=== PATIENT | male | born 1960 | race Caucasian/White ===

== ENCOUNTER 2021-11-24 09:53 | Inpatient (IN) | payer BC ==
[2021-11-24] MEDS ORDERED: ACETAMINOPHEN 500 MG TAB ONE (10:11)
[2021-11-24 10:23] LABS: Hematocrit 42.1 % (39.6-49.0); Lymphocytes % 22.1 % (15.3-44.8); MPV 7.4 fL (7.6-11.3); RBC Red Blood Cell Count 4.96 M/uL (4.33-5.43)
[2021-11-24] MEDS ORDERED: NA CHLORIDE 0.9% 1,000 ML ONE ×3 (10:23→23:00)
[2021-11-24] MEDS ORDERED: CEFTRIAXONE 1000 MG/VIAL ONE (10:23)
[2021-11-24] MEDS ORDERED: NA CHLORIDE 0.9% 100 ML IV ONE (10:23)
--- NOTE | 2021-11-24 10:28 | RAD REPORT ---
EXAM DESCRIPTION: CT - Head Brain Wo Cont - 11/24/2021 10:15 am CLINICAL HISTORY: Head injury status post fall COMPARISON: None. TECHNIQUE: Computed axial tomography of the head was obtained. IV contrast was not requested. All CT scans are performed using dose optimization technique as appropriate and may include automated exposure control or mA/KV adjustment according to patient size. FINDINGS: An intracranial bleed is not seen . The ventricles are normal in caliber. No significant hypodense areas within the brain No extra-axial fluid collection is noted. Small left frontal bone osteoma Fluid within the sinuses/ mastoids is not seen. IMPRESSION: No acute intracranial abnormality is seen. If patient's symptoms persist MRI of the bra in would be recommended.
--- NOTE | 2021-11-24 10:43 | RAD REPORT ---
EXAM DESCRIPTION: Richelle Single View11/24/2021 10:26 am CLINICAL HISTORY: Shortness of breath COMPARISON: none FINDINGS: The lungs appear clear of acute infiltrate. The heart is normal size IMPRESSION: No acute abnormalities displayed
[2021-11-24 10:44] LABS: Albumin 3.4 g/dL (3.4-5.0); Bilirubin Total 1.7 mg/dL (0.2-1.0); Potassium 3.9 mmol/L (3.5-5.1); Protein, Total 6.9 g/dL (6.4-8.2)
[2021-11-24 10:51] LABS: Troponin High Sensitivity 63.4 pg/mL (<58.9)
[2021-11-24 10:52] LABS: Protime INR 0.95
[2021-11-24 10:58] LABS: Urine Bacteria 20-50 /HPF (NONE SEEN); Urine Mucus 1+ /HPF (NONE SEEN); Urine RBC <5 /HPF (NONE SEEN)
[2021-11-24 11:11] LABS: SARS-COV-2 RT PCR NEGATIVE (NEGATIVE)
--- NOTE | 2021-11-24 12:32 | RAD REPORT ---
EXAM DESCRIPTION: CT - Abdomen Pelvis W Contrast - 11/24/2021 12:06 pm CLINICAL HISTORY: Abdominal pain COMPARISON: none. TECHNIQUE: Computed axial tomography of the abdomen pelvis was obtained. 100 cc Isovue-300 was admin istered intravenously. Oral contrast was not requested which limits evaluation of bowel and appendix. All CT scans are performed using dose optimization technique as appropriate and may include automated exposure control or mA/KV adjustment according to patient size. FINDINGS: The liver contains several sub centimeter low-density lesions. Mild splenomegaly The pancreas, adrenals and kidneys unremarkable There is no evidence of diverticulitis. Small umbilical hernia small inguinal hernias contain fat IMPRESSION: Mild splenomegaly Several subcentimeter hepatic lesions are too small to characterize by CT criteria. It is recommended that the patient have a follow up ultrasound 3 months for re-evaluation
--- NOTE | 2021-11-24 13:24 | ER ---
Nurse's Notes [facility] Name: Sathya Soria Age: 61 yrs Sex: Male : 1960 Arrival Date: 11/24/2021 Time: 09:55 Bed 4 Private MD: Diagnosis: Severe sepsis without septic shock Presentation: 11/24 10:05 Chief complaint: Patient states: Fever, GARCIA, chills, not feeling well since this ll1 morning. Tripped on his way in to ED and fell back and hit head. Denies LOC. Pale, diaphoretic, and hot now. Coronavirus screen: Vaccine status: Patient reports being unvaccinated. Client denies travel out of the [place] in the last 14 days. difficulty breathing, fatigue, fever, headache, shortness of breath, Client presents with at least one sign or symptom that may indicate coronavirus-19. Standard/surgical mask placed on the client. Ebola Screen: Patient denies travel to an Ebola-affected area in the 21 days before illness onset. Initial Sepsis Screen: Does the patient meet any 2 criteria? RR > 20 per min. Temp <36.0*C (96.8*F)) or > 38.3*C (100.9*F). HR > 90 bpm. Yes Does the patient have a suspected source of infection? Yes: Productive cough/pneumonia. Risk Assessment: Do you want to hurt yourself or someone else? Patient reports no desire to harm self or others. Onset of symptoms was November 24, 2021. 10:05 Method Of Arrival: Wheelchair ll1 10:05 Acuity: MAXX 2 ll1 Triage Assessment: 10:08 General: Appears uncomfortable, ill, Behavior is cooperative, appropriate for age. ll1 Pain: Complains of pain in head Pain currently is 7 out of 10 on a pain scale. Pain began suddenly. Neuro: Reports headache hit back of head on the way in. Respiratory: Reports shortness of breath. Derm: Skin is diaphoretic, Reports. 11:39 Headache History: Denies prior headaches. tw2 Historical: - Allergies: 10:03 No Known Allergies; ll1 - PMHx: 10:03 None; ll1 - PSHx: 10:03 Appendectomy; ll1 - Immunization history:: Client reports having NOT received the Covid vaccine. - Social history:: Smoking status: Patient denies any tobacco usage or history of. Screenin:59 Abuse screen: Denies threats or abuse. Nutritional screening: No deficits noted. tw2 Tuberculosis screening: No symptoms or risk factors identified. Fall Risk None identified. Assessment: 09:58 Reassessment: provider at bedside at this time. tw2 10:30 General: Appears well developed, Behavior is calm, cooperative. Pain: Complains of pain ww in back. Neuro: Level of Consciousness is awake, alert, obeys commands, Oriented to person, place, time, situation, Moves all extremities. Speech is normal. Cardiovascular: Rhythm is regular Chest pain is denied. Respiratory: Airway is patent Respiratory effort is even, unlabored, Respiratory pattern is regular, symmetrical. GI: No signs and/or symptoms were reported involving the gastrointestinal system. Abdomen is round. : Urine is orange clear. Derm: Skin is intact, Skin is clammy, diaphoretic, Skin temperature is cool. 11:15 Reassessment: Patient appears in no apparent distress at this time. Patient and/or ww family updated on plan of care and expected duration. Pain level reassessed. Patient is alert, oriented x 3, equal unlabored respirations, skin warm/dry/pink. Derm: Skin is intact, Skin is dry, Skin temperature is warm. 12:59 Reassessment: Patient appears in no apparent distress at this time. No changes from ww previously documented assessment. Patient and/or family updated on plan of care and expected duration. Pain level reassessed. Patient is alert, oriented x 3, equal unlabored respirations, skin warm/dry/pink. Patient states feeling better. 13:25 Reassessment: Patient appears in no apparent distress at this time. No changes from ww previously documented assessment. Patient and/or family updated on plan of care and expected duration. Pain level reassessed. Patient is alert, oriented x 3, equal unlabored respirations, skin warm/dry/pink. Patient states feeling better. 14:35 Reassessment: Patient appears in no apparent distress at this time. No changes from ww previously documented assessment. Patient and/or family updated on plan of care and expected duration. Pain level reassessed. Patient is alert, oriented x 3, equal unlabored respirations, skin warm/dry/pink. 15:30 Reassessment: Patient appears in no apparent distress at this time. No changes from ww previously documented assessment. Patient and/or family updated on plan of care and expected duration. Pain level reassessed. Patient is alert, oriented x 3, equal unlabored respirations, skin warm/dry/pink. 17:35 Reassessment: Patient appears in no apparent distress at this time. No changes from ww previously documented assessment. Patient and/or family updated on plan of care and expected duration. Pain level reassessed. Patient is alert, oriented x 3, equal unlabored respirations, skin warm/dry/pink. assisted to restroom Patient states feeling better. 18:46 Reassessment: Patient appears in no apparent distress at this time. No changes from ww previously documented assessment. Patient and/or family updated on plan of care and expected duration. Pain level reassessed. Patient is alert, oriented x 3, equal unlabored respirations, skin warm/dry/pink. Patient states feeling better. Vital Signs: 10:00 BP 98 / 56; Pulse 118; Resp 22; Pulse Ox 98% on R/A; tw2 10:05 BP 124 / 57; Pulse 146; Resp 22; Temp 103.1; Pulse Ox 95% on R/A; Weight 144.24 kg; ll1 Height 5 ft. 11 in. (180.34 cm); Pain 7/10; 11:00 BP 94 / 62; Pulse 118; Resp 21; Pulse Ox 98% on R/A; tw2 11:37 BP 99 / 57; Pulse 98; Resp 19; Pulse Ox 98% on R/A; tw2 11:38 Temp 99.8(O); tw2 13:25 BP 106 / 72; Pulse 86; Resp 16; Pulse Ox 98% on R/A; ww 16:00 BP 94 / 60; Pulse 92; Resp 17; Pulse Ox 99% on R/A; tw2 17:00 BP 105 / 63; Pulse 86; Resp 19; Pulse Ox 100% on R/A; tw2 18:07 BP 77 / 28; Pulse 88; Resp 19; Pulse Ox 99% on R/A; tw2 10:05 Body Mass Index 44.35 (144.24 kg, 180.34 cm) 1 ED Course: 09:55 Patient arrived in ED. rg4 09:55 Placed in gown. Bed in low position. Side rails up X2. Adult w/ patient. Cardiac tw2 monitor on. Pulse ox on. NIBP on. 09:56 Devin Castañeda PA is PHCP. jr8 09:56 Miles Fernández DO is Attending Physician. jr8 09:58 Sherie Garibay, ALEX is Primary Nurse. tw2 10:00 EKG done. Inserted saline lock: 20 gauge in right antecubital area, using aseptic ww technique. Blood collected. 10:03 Arm band placed on Patient placed in an exam room, on a stretcher. ll1 10:08 Triage completed. ll1 10:16 CT Head Brain wo Cont In Process Unspecified. EDMS 10:28 Chest Single View XRAY In Process Unspecified. EDMS 10:52 Inserted saline lock: 20 gauge in left antecubital area, using aseptic technique. Blood ww collected. 12:08 CT Abd/Pelvis - IV Contrast Only In Process Unspecified. EDMS 13:23 Malcom Velez MD is Hospitalizing Provider. jr8 13:26 Hospitalizing Provider role handed off by Malcom Velez MD jr8 13:26 Rylan Low MD is Hospitalizing Provider. jr8 19:10 Primary Nurse role handed off by Sherie Garibay RN tw5 19:10 Nirmala Keene is Primary Nurse. tw5 Administered Medications: 10:10 Drug: Acetaminophen 1000 mg Route: PO; ap3 11:41 Follow up: Response: No adverse reaction; Temperature is decreased tw2 10:52 Drug: NS 0.9% 1000 ml Route: IV; Rate: 1000 ml; Site: right antecubital; ww 10:52 Drug: Rocephin (cefTRIAXone) 1 grams Route: IV; Rate: calculated rate; Site: right ww antecubital; 11:44 Drug: NS 0.9% 1000 ml Route: IV; Rate: 1000 ml; Site: left antecubital; ww 13:39 Drug: fentaNYL (PF) 50 mcg Route: IVP; Site: right antecubital; ww Outcome: 13:24 Decision to Hospitalize by Provider. jr8 11/25 14:59 Patient left the ED. jd3 Signatures: Dispatcher [employer] EDMS Devin Castañeda PA PA jr8 Sherie Garibay, RN RN tw2 Allison Villegas 4 Milan Enriquez RN RN jd3 Komal Hartmann, RN RN ap3 Merari Vega, RN RN ll1 Nirmala Keene tw5 Jud Keene, RN RN ww
--- NOTE | 2021-11-24 13:24 | EDPHYS ---
Physician Documentation [facility] Name: Sathya Soria Age: 61 yrs Sex: Male : 1960 Arrival Date: 11/24/2021 Time: 09:55 Bed 4 Private MD: ED Physician Miles Fernández HPI: 11/24 11:25 This 61 yrs old Male presents to ER via Wheelchair with complaints of Fever, Headache, jr8 Weakness, Fall Injury. 11:25 The patient reports fever, with an emergency department temperature of 103.1 degrees jr8 Fahrenheit. Onset: The symptoms/episode began/occurred acutely, today. Modifying factors: there are no obvious modifying factors. Associated signs and symptoms: Pertinent positives: chills, headache, nausea. Severity of symptoms: At their worst the symptoms were moderate in the emergency department the symptoms are unchanged. The patient has not experienced similar symptoms in the past. The patient has not recently seen a physician. Upon arrival to ED fell and hit back of head as well. Denies LOC. Historical: - Allergies: 10:03 No Known Allergies; ll1 - PMHx: 10:03 None; ll1 - PSHx: 10:03 Appendectomy; ll1 - Immunization history:: Client reports having NOT received the Covid vaccine. - Social history:: Smoking status: Patient denies any tobacco usage or history of. ROS: 11:25 Eyes: Negative for injury, pain, redness, and discharge, ENT: Negative for injury, jr8 pain, and discharge, Neck: Negative for injury, pain, and swelling, Cardiovascular: Negative for chest pain, palpitations, and edema, Respiratory: Negative for shortness of breath, cough, wheezing, and pleuritic chest pain, Back: Negative for injury and pain, MS/Extremity: Negative for injury and deformity, Skin: Negative for injury, rash, and discoloration. 11:25 Constitutional: Positive for chills, fever. 11:25 Abdomen/GI: Positive for nausea, Negative for abdominal pain, vomiting, diarrhea. 11:25 Neuro: Positive for dizziness, headache. Exam: 11:25 Eyes: Pupils equal round and reactive to light, extra-ocular motions intact. Lids and jr8 lashes normal. Conjunctiva and sclera are non-icteric and not injected. Cornea within normal limits. Periorbital areas with no swelling, redness, or edema. ENT: Nares patent. No nasal discharge, no septal abnormalities noted. Tympanic membranes are normal and external auditory canals are clear. Oropharynx with no redness, swelling, or masses, exudates, or evidence of obstruction, uvula midline. Mucous membranes moist. Neck: Trachea midline, no thyromegaly or masses palpated, and no cervical lymphadenopathy. Supple, full range of motion without nuchal rigidity, or vertebral point tenderness. No Meningismus. 11:25 Respiratory: Lungs have equal breath sounds bilaterally, clear to auscultation and percussion. No rales, rhonchi or wheezes noted. No increased work of breathing, no retractions or nasal flaring. Abdomen/GI: Soft, non-tender, with normal bowel sounds. No distension or tympany. No guarding or rebound. No evidence of tenderness throughout. Back: No spinal tenderness. No costovertebral tenderness. Full range of motion. Skin: Warm, moist with normal turgor. Normal color with no rashes, no lesions, and no evidence of cellulitis. MS/ Extremity: Pulses equal, no cyanosis. Neurovascular intact. Full, normal range of motion. Neuro: Awake and alert, GCS 15, oriented to person, place, time, and situation. Cranial nerves II-XII grossly intact. Motor strength 5/5 in all extremities. Sensory grossly intact. 11:25 Constitutional: The patient appears alert, awake, diaphoretic, obviously ill. 11:25 Cardiovascular: Rate: tachycardic, Rhythm: regular, Pulses: Pulses are 2+ in right radial artery and left radial artery. Heart sounds: normal, normal S1and S2, no S3 or S4, no murmur, no rub, no gallop, Edema: is not appreciated, JVD: is not appreciated. Vital Signs: 10:00 BP 98 / 56; Pulse 118; Resp 22; Pulse Ox 98% on R/A; tw2 10:05 BP 124 / 57; Pulse 146; Resp 22; Temp 103.1; Pulse Ox 95% on R/A; Weight 144.24 kg; ll1 Height 5 ft. 11 in. (180.34 cm); Pain 7/10; 11:00 BP 94 / 62; Pulse 118; Resp 21; Pulse Ox 98% on R/A; tw2 11:37 BP 99 / 57; Pulse 98; Resp 19; Pulse Ox 98% on R/A; tw2 11:38 Temp 99.8(O); tw2 13:25 BP 106 / 72; Pulse 86; Resp 16; Pulse Ox 98% on R/A; ww 16:00 BP 94 / 60; Pulse 92; Resp 17; Pulse Ox 99% on R/A; tw2 17:00 BP 105 / 63; Pulse 86; Resp 19; Pulse Ox 100% on R/A; tw2 18:07 BP 77 / 28; Pulse 88; Resp 19; Pulse Ox 99% on R/A; tw2 10:05 Body Mass Index 44.35 (144.24 kg, 180.34 cm) ll1 MDM: 09:56 [facility] medically [facility]. [facility] 13:23 Data reviewed: vital signs, nurses notes, lab test result(s), EKG, radiologic studies, [facility] scan, plain films. Data interpreted: Pulse oximetry: on room air is 98 %. Interpretation: normal. Counseling: I had a detailed discussion with the patient and/or guardian regarding: the historical points, exam findings, and any diagnostic results supporting the discharge/admit diagnosis, lab results, radiology results, the need for further work-up and treatment in the hospital. 11/24 10:03 Order name: Blood Culture Adult (2) [facility] 11/24 10:03 Order name: CBC with Diff; Complete Time: 10:26 [facility] 11/24 10:03 Order name: CMP; Complete Time: 11: [facility] 11/24 10:03 Order name: Lactate; Complete Time: 11: [facility] 11/24 10:03 Order name: Protime (+inr); Complete Time: 11: [facility] 11/24 10:03 Order name: Ptt, Activated; Complete Time: 11:00 [facility] 11/24 10:03 Order name: Urine Microscopic Only; Complete Time: 11: [facility] 11/24 10:04 Order name: COVID-19/FLU A+B (Document "Date of Onset" if Symptomatic); Complete Time: [facility] 11:11/24 10:04 Order name: Troponin HS; Complete Time: 11:00 [facility] 11/24 10:20 Order name: Glucose, Ancillary Testing; Complete Time: 10:24 [facility]DC 11/24 11:02 Order name: Urine Culture [facility]DC 11/24 14:01 Order name: Lactate Sepsis 2 HR Follow-up; Complete Time: 14:02 [facility] 11/24 15:59 Order name: Urinalysis EDDC 11/24 15:59 Order name: Basic Metabolic Panel [facility]DC 11/24 10:03 Order name: Chest Single View XRAY; Complete Time: 11:00 [facility] 11/24 10:03 Order name: Accucheck; Complete Time: 10:16 [facility] 11/24 10:03 Order name: CT Head Brain wo Cont; Complete Time: 10:39 [facility] 11/24 11:24 Order name: CT Abd/Pelvis - IV Contrast Only; Complete Time: 12:36 [facility] 11/24 13:42 Order name: Diet Heart Healthy; Complete Time: 13:42 11/24 15:59 Order name: Basic Metabolic Panel; Complete Time: 08:40 [facility] 11/24 15:59 Order name: CBC with Automated Diff [facility]DC 11/24 15:59 Order name: CBC with Automated Diff; Complete Time: 08:40 [facility]DC 11/24 15:59 Order name: Lipid Profile EDDC 11/24 15:59 Order name: Lipid Profile; Complete Time: 08:40 [facility]DC 11/25 08:02 Order name: US; Complete Time: 08:40 [facility] 11/24 10:03 Order name: Cardiac monitoring; Complete Time: 10:16 [facility] 11/24 10:03 Order name: EKG - Nurse/Tech; Complete Time: 10:04 [facility] 11/24 10:03 Order name: IV Saline Lock - Large Bore; Complete Time: 10:16 [facility] 11/24 10:03 Order name: Labs collected and sent; Complete Time: 10:16 [facility] 11/24 10:03 Order name: O2 Per Protocol; Complete Time: 10:04 [facility] 11/24 10:03 Order name: O2 Sat Monitoring; Complete Time: 10:04 [facility] 11/24 10:03 Order name: Urine Dipstick-Ancillary (obtain specimen); Complete Time: 10:52 jr Administered Medications: 10:10 Drug: Acetaminophen 1000 mg Route: PO; ap3 11:41 Follow up: Response: No adverse reaction; Temperature is decreased tw2 10:52 Drug: NS 0.9% 1000 ml Route: IV; Rate: 1000 ml; Site: right antecubital; ww 10:52 Drug: Rocephin (cefTRIAXone) 1 grams Route: IV; Rate: calculated rate; Site: right ww antecubital; 11:44 Drug: NS 0.9% 1000 ml Route: IV; Rate: 1000 ml; Site: left antecubital; ww 13:39 Drug: fentaNYL (PF) 50 mcg Route: IVP; Site: right antecubital; Disposition Summary: 11/24/21 13:24 Hospitalization Ordered Hospitalization Status: Inpatient Admission jr8 Condition: Stable jr8 Problem: new jr8 Symptoms: have improved jr8 Bed/Room Type: Standard jr8 Provider: Rylan Low(11/24/21 13:26) jr8 Location: Telemetry/MedSurg (Inpatient)(11/25/21 13:19) eb Room Assignment: [facility](11/25/21 13:19) eb Diagnosis - Severe sepsis without septic shock jr8 Forms: - Medication Reconciliation Form jr8 - SBAR form jr8 Addendum: 11/27/2021 15:41 Co-signature as Attending Physician, Miles Fernández DO I was immediately available on-site m s3 in the Emergency Department for consultation in the care of the patient.. Signatures: Dispatcher [employer] EDMS Devin Castañeda PA PA jr8 Landry Sharma RN RN [email or web address] Komal Hartmann RN RN ap3 Tangela Dumont Lynsay, RN RN 1 Miles Fernández DO DO ms3 Jud Keene RN RN ww Sherie Garibay RN tw2 Corrections: (The following items were deleted from the chart) 11/24 13:26 13:24 Malcom Velez jr8 jr8 21:10 13:24 Telemetry/MedSurg (Inpatient) jr8 ja1 21:10 13:24 jr8 ja1 11/25 13:19 11/24 21:10 [facility] ER HOLD ja1 eb 11/25 13:19 11/24 [facility] eb
[2021-11-24] MEDS ORDERED: FENTANYL CITR 100 MCG/2 ML ONE (13:41)
[2021-11-24] MEDS ORDERED: ONDANSETRON 4 MG/2 ML VIAL IV PRN (15:51)
[2021-11-24] MEDS: NA CHLORIDE 0.9% 1,000 ML IV SCH (16:00)
--- NOTE | 2021-11-24 16:02 | P.HP ---
Certification for Inpatient Patient admitted to: Observation With expected LOS: <2 Midnights Practitioner: I am a practitioner with admitting privileges, knowledge of patient current condition, hospital course, and medical plan of care. Services: Services provided to patient in accordance with Admission requirements found in Title 42 Section 412.3 of the Code of Federal Regulations Patient History Date of Service: 11/24/21 Reason for admission: Lethargy, Fever, Lactic acidosis. History of Present Illness: 61-year-old male patient who came to the emergency with complaint of lethargy and feeling of chills. He reported episode of chills that started suddenly while he was at work. He denied overt episode of diarrhea, nausea, vomiting but did have fever measured at 103. He denied cough or congestion. He had lab work done in the emergency room that revealed elevated lactic acid of 4.5 and with IV fluid is trended to 1. He also had elevated creatinine 1.36 prompting an acute kidney injury. There was concern for underlying septic condition as his urine analysis revealed possible UTI. He was admitted for observation for his possible sepsis work-up. Home medications list reviewed: No - Past Medical/Surgical History Has patient received pneumonia vaccine in the past: No Diabetic: No - Social History Smoking Status: Never smoker Alcohol use: No Review of Systems General: Chills, Weakness, Malaise Eyes: Unremarkable ENT: Unremarkable Respiratory: Unremarkable Physical Examination - Physical Exam General: Alert, Oriented x3 HEENT: Atraumatic, Normocephalic Neck: Supple Respiratory: Normal air movement Cardiovascular: Regular rate/rhythm, Normal S1 S2 Gastrointestinal: Soft and benign Neurological: Normal speech, Normal strength at 5/5 x4 extr, Cranial nerves 3-12 intact - Studies Laboratory Data (last 24 hrs) 11/24/21 10:08: PT 11.3, INR 0.95, APTT 26.4 11/24/21 10:08: Sodium 138, Potassium 3.9, BUN 16, Creatinine 1.36 H, Glucose 163 H, Total Bilirubin 1.7 H, AST 32, ALT 36, Alkaline Phosphatase 66 11/24/21 10:08: WBC 4.6, Hgb 15.0, Hct 42.1, Plt Count 148 L Assessment and Plan - Plan Suspected sepsis: Present on admission Elevated lactic acid noted but this is trended down with IV fluid. Source is suspected to be urinary tract infection. We will continue work-up and monitor. Urine culture obtained. Will follow closely. Acute kidney injury: Creatinine is elevated at 1.36. We will continue IV fluid for hydration purposes. We will ask nephrology input UTI: Significant UA for possible UTI. Empiric antibiotic therapy with Rocephin. We will monitor culture report for adjustment. Prophylaxis: Lovenox for DVT prophylaxis CODE STATUS: Full code Discharge Plan: Home Plan to discharge in: 24 Hours - Advance Directives Does patient have a Living Will: No Does patient have a Durable POA for Healthcare: No
[2021-11-24] MEDS: ENOXAPARIN 40 MG/0.4 ML SQ SCH (17:00)
[2021-11-24] MEDS ORDERED: ENOXAPARIN 40 MG/0.4 ML SQ ONE (23:01)
[2021-11-25] MEDS: ACETAMINOPHEN 325 MG TABLET PO PRN ×2 (02:54→08:37)
[2021-11-25] MEDS ORDERED: ACETAMINOPHEN 325 MG TABLET ONE ×2 (02:56→08:33)
[2021-11-25 03:09] LABS: Absolute Lymphocytes (CBC) 0.9 K/uL (0.7-4.9); Lymphocytes % 15.5 % (15.3-44.8); MPV 7.3 fL (7.6-11.3); RBC Red Blood Cell Count 3.99 M/uL (4.33-5.43)
[2021-11-25 03:11] VITALS: BMI 44.4
[2021-11-25 03:28] LABS: Potassium 3.8 mmol/L (3.5-5.1)
[2021-11-25] MEDS: NA CHLORIDE 0.9% 1,000 ML IV SCH ×2 (05:20→21:49)
--- NOTE | 2021-11-25 07:25 | P.CNS ---
Date of Consult: 11/24/21 Reason for Consult: elevated creatinine Chief Complaint: Lethargy, Fever, Lactic acidosis. History of Present Illness: 61-year-old male admitted with chills , noted with UTI and elevated creatinine to 1.36 - no prior hx of kidney problems - + urine frequency prior to acute symptoms - +recurrent anal fissures Allergies No Known Allergies Allergy (Unverified 11/24/21 22:05) - Past Medical/Surgical History Diabetic: No Past Medical History: Reviewed- Non-Contributory Past Surgical History: Reviewed- Non-Contributory - Social History Alcohol use: No CD- Drugs: No Caffeine use: Yes Review of Systems 10-point ROS is otherwise unremarkable Physical Examination Temp Pulse Resp BP Pulse Ox 98.2 F 75 16 103/52 L 100 11/25/21 00:00 11/25/21 04:00 11/25/21 04:00 11/25/21 04:00 11/25/21 04:00 General: Alert, In no apparent distress, Oriented x3 HEENT: Atraumatic, Normocephalic, PERRLA Neck: Supple, 2+ carotid pulse no bruit, JVD not distended Respiratory: Clear to auscultation bilaterally, Normal air movement Cardiovascular: No edema, Normal pulses, Regular rate/rhythm Gastrointestinal: Normal bowel sounds, Hypoactive Musculoskeletal: No clubbing, No swelling Integumentary: No rashes, No breakdown Laboratory Data (last 24 hrs) 11/24/21 10:08: PT 11.3, INR 0.95, APTT 26.4 11/24/21 10:08: Sodium 138, Potassium 3.9, BUN 16, Creatinine 1.36 H, Glucose 163 H, Total Bilirubin 1.7 H, AST 32, ALT 36, Alkaline Phosphatase 66 11/24/21 10:08: WBC 4.6, Hgb 15.0, Hct 42.1, Plt Count 148 L - Problems (1) UTI (urinary tract infection) Current Visit: Yes Status: Acute Qualifiers: Urinary tract infection type: acute cystitis Physician Review: Patient Assessed, Agree with Above Assessment and Plan Physician Review Additional Text: ARF - due to pre-renal UTI LUTS plan -continue gentle IVF and abx -RENALLY DOSE ALL MDS - FOLLOW CR TREND , EXPECTED TO IMPROVED IN AM - consider bladder US with prostate view s for BPH
--- NOTE | 2021-11-25 07:28 | P.PN ---
Subjective Date of Service: 11/25/21 Chief Complaint: Lethargy, Fever, Lactic acidosis. Subjective: No new changes, No C/O voiced Physical Examination - Vital Signs Temperature: 98.2 F Blood Pressure: 103/52 Pulse: 75 Respirations: 16 Pulse Ox (%): 100 - Physical Exam General: Alert, In no apparent distress, Oriented x3 HEENT: Atraumatic, Normocephalic Neck: Supple, 2+ carotid pulse no bruit Respiratory: Clear to auscultation bilaterally, Normal air movement Cardiovascular: No edema, Normal pulses, Regular rate/rhythm, Normal S1 S2 Gastrointestinal: Normal bowel sounds, Soft and benign - Studies Laboratory Data (last 24 hrs) 11/24/21 10:08: PT 11.3, INR 0.95, APTT 26.4 11/24/21 10:08: Sodium 138, Potassium 3.9, BUN 16, Creatinine 1.36 H, Glucose 163 H, Total Bilirubin 1.7 H, AST 32, ALT 36, Alkaline Phosphatase 66 11/24/21 10:08: WBC 4.6, Hgb 15.0, Hct 42.1, Plt Count 148 L Assessment And Plan - Current Problems (Diagnosis) (1) UTI (urinary tract infection) Current Visit: Yes Status: Acute Qualifiers: Urinary tract infection type: acute cystitis Physician Review: Patient Assessed, Agree with Above Assessment and Plan Physician Review Additional Text: 11/25/21 07:26 ARF UTI PLAN cr improving , continue to monitor follow sonogram
--- NOTE | 2021-11-25 08:02 | RAD REPORT ---
EXAM DESCRIPTION: US - Urinary Bladder - 11/25/2021 7:53 am CLINICAL HISTORY: UTI , r/o BPH COMPARISON: Abdomen Pelvis W Contrast dated 11/24/2021 FINDINGS: Urinary bladder has little volume. Patient voided only a few minutes prior to the examinat ion. Bladder wall thickness is accentuated in the mostly contracted state. This precludes an accurate ability to assess the guevara for any mass or thickening. On the available images no gross evidence fo r a bladder wall mass. Volume was 52 milliliters. No bladder stone or other intraluminal abnormality identifiable. On limited imaging, prostate gland did not appear enlarged or lobulated. IMPRESSION: No gross bladder abnormality seen; however, the mostly contracted state of the bladder l imits the examination. If there are ongoing concerns for bladder wall abnormality, exam could be repeated and timed so that the patient has a full bladder. No prostate enlargement identifiable.
[2021-11-25] MEDS ORDERED: ENOXAPARIN 40 MG/0.4 ML SQ ONE (08:34)
[2021-11-25] MEDS: ENOXAPARIN 40 MG/0.4 ML SQ SCH (08:37)
[2021-11-25] MEDS: CEFTRIAXONE 1,000 MG in NA CHLORIDE 0.9% 50 ML IVPB SCH (09:00)
[2021-11-25] MEDS ORDERED: CEFTRIAXONE 1000 MG/VIAL ONE (09:16)
[2021-11-25] MEDS ORDERED: NA CHLORIDE 0.9% 50 ML ONE (09:17)
--- NOTE | 2021-11-25 13:23 | P.PN ---
Subjective Date of Service: 11/25/21 Chief Complaint: Lethargy, Fever, Lactic acidosis. Subjective: No new changes, Improving Physical Examination - Vital Signs Temperature: 97.1 F Blood Pressure: 110/58 Pulse: 80 Respirations: 16 Pulse Ox (%): 99 - Physical Exam General: Alert, Oriented x3 HEENT: Atraumatic, Normocephalic Neck: Supple Respiratory: Normal air movement Cardiovascular: Regular rate/rhythm, Normal S1 S2 Gastrointestinal: Soft and benign Neurological: Sensation intact, Cranial nerves 3-12 intact Assessment And Plan - Plan Suspected sepsis: Present on admission Source is suspected to be urinary tract infection. We will continue work-up and monitor. Urine culture final report pending. Will follow closely. Acute kidney injury: Creatinine is elevated at 1.36. We will continue IV fluid for hydration purposes. We will ask nephrology input UTI: Significant UA for possible UTI. Empiric antibiotic therapy with Rocephin. We will monitor culture report for adjustment. Prophylaxis: Lovenox for DVT prophylaxis CODE STATUS: Full code Physician Review: Patient Assessed, Agree with Above Assessment and Plan
[2021-11-25] MEDS: TRAMADOL HCL 50 MG TAB PO PRN ×2 (15:19→23:24)
[2021-11-26 04:30] LABS: Magnesium 2.4 mg/dL (1.8-2.4); Phosphorus 2.3 mg/dL (2.5-4.9); Potassium 3.9 mmol/L (3.5-5.1)
[2021-11-26] MEDS ORDERED: POTASSIUM CL SA 10 MEQ TAB PO ONE (06:00)
[2021-11-26] MEDS: NA CHLORIDE 0.9% 1,000 ML IV SCH (08:00)
[2021-11-26] MEDS: CEFTRIAXONE 1,000 MG in NA CHLORIDE 0.9% 50 ML IVPB SCH (08:04)
[2021-11-26] MEDS: ENOXAPARIN 40 MG/0.4 ML SQ SCH (08:06)
[2021-11-26] MEDS ORDERED: POTASSIUM PHOS IN 0.9 % NACL 15 MMOL/250 ML BAG IV ONE (09:00)
--- NOTE | 2021-11-26 09:40 | P.DS ---
Admission Date: 11/25/21 Discharge Date: 11/26/21 Disposition: ROUTINE DISCHARGE Discharge Condition: GOOD Reason for Admission: Lethargy, Fever, Lactic acidosis. Brief History of Present Illness: 61-year-old male patient who came to the emergency with complaint of lethargy and feeling of chills. He reported episode of chills that started suddenly while he was at work. He denied overt episode of diarrhea, nausea, vomiting but did have fever measured at 103. He denied cough or congestion. He had lab work done in the emergency room that revealed elevated lactic acid of 4.5 and with IV fluid is trended to 1. He also had elevated creatinine 1.36 prompting an acute kidney injury. There was concern for underlying septic condition as his urine analysis revealed possible UTI. He was admitted for observation for his possible sepsis work-up. Hospital Course: During the course of his hospital stay his feeling of unwellness improved slightly. His urine culture grew mixed hailey with 10-100,000 colony range and his vitals remained stable. He will go home today with a prescription of Levaquin to complete 5 days for suspected urinary tract infection and also follow-up with his primary care doctor within a week of hospital discharge for routine checkup. He has been instructed to return to the emergency room if he continues to have episode of lethargy, malaise, fever, chills or burning micturition. Vital Signs/Physical Exam: Temp Pulse Resp BP Pulse Ox 97.2 F 75 19 109/69 96 11/26/21 04:00 11/26/21 04:00 11/26/21 04:00 11/26/21 04:00 11/26/21 04:00 General: Alert, Oriented x3 HEENT: Atraumatic, Normocephalic Neck: Supple Respiratory: Normal air movement Cardiovascular: Regular rate/rhythm, Normal S1 S2 Gastrointestinal: Soft and benign Neurological: Normal speech Laboratory Data at Discharge: WBC 5.5 K/uL (4.3-10.9) D 11/25/21 02:49 Hgb 12.2 g/dL (13.6-17.9) L D 11/25/21 02:49 Hct 34.0 % (39.6-49.0) L D 11/25/21 02:49 Plt Count 110 K/uL (152-406) L D 11/25/21 02:49 PT 11.3 SECONDS (9.2-12.8) 11/24/21 10:08 INR 0.95 11/24/21 10:08 APTT 26.4 SECONDS (21.7-34.4) 11/24/21 10:08 Sodium 138 mmol/L (136-145) 11/26/21 03:51 Potassium 3.9 mmol/L (3.5-5.1) 11/26/21 03:51 BUN 11 mg/dL (7-18) 11/26/21 03:51 Creatinine 0.95 mg/dL (0.55-1.3) 11/26/21 03:51 Glucose 110 mg/dL (74-106) H 11/26/21 03:51 Phosphorus 2.3 mg/dL (2.5-4.9) L 11/26/21 03:51 Magnesium 2.4 mg/dL (1.8-2.4) 11/26/21 03:51 Total Bilirubin 1.7 mg/dL (0.2-1.0) H 11/24/21 10:08 AST 32 U/L (15-37) 11/24/21 10:08 ALT 36 U/L (12-78) 11/24/21 10:08 Alkaline Phosphatase 66 U/L (45-117) 11/24/21 10:08 Triglycerides 103 mg/dL (<150) 11/25/21 02:49 Cholesterol 101 mg/dL (<200) 11/25/21 02:49 HDL Cholesterol 30 mg/dL (40-60) L 11/25/21 02:49 Cholesterol/HDL Ratio 3.37 11/25/21 02:49 Home Medications: Levofloxacin [Levaquin] 500 mg PO DAILY 5 Days #5 tablet 11/26/21 New Medications: Levofloxacin [Levaquin] 500 mg PO DAILY 5 Days #5 tablet Diet: AHA Activity: Ad leti Followup: Janis Grimaldo MD [Primary Care Provider] - Time spent managing pt's care (in minutes): 35
[2021-11-26 12:18] VITALS: O2SAT 99
[2021-11-26 12:51] VITALS: BP 125/72; TEMP 97.3
--- NOTE | 2021-11-26 15:25 | P.PN ---
Subjective Date of Service: 11/26/21 Chief Complaint: Lethargy, Fever, Lactic acidosis. Subjective: No new changes Physical Examination - Vital Signs Temperature: 97.3 F Blood Pressure: 125/72 Pulse: 75 Respirations: 18 Pulse Ox (%): 99 - Studies Microbiology Data (last 24 hrs): 11/24/21 10:45 Clean Catch Urine [place] Count - Final BETWEEN 10,000 & 100,000 CFU/ML 11/24/21 10:45 Clean Catch Urine - Final MIXED GERTRUDE. Assessment And Plan - Current Problems (Diagnosis) (1) UTI (urinary tract infection) Status: Acute Qualifiers: Urinary tract infection type: acute cystitis Physician Review: Patient Assessed, Agree with Above Assessment and Plan Physician Review Additional Text: 11/25/21 07:26 ARF UTI PLAN cr improving to normal range negative US bladder for prostate enlargement -c/w abx -continue to monitor
[2021-12-03 10:25] LABS: Urine Blood 1+ (Negative); Urine Glucose Negative (Negative); Urine Protein 2+ (Negative); Urine Specific Gravity >=1.030 (1.005-1.030)
== END 2021-11-26 13:05 | disposition home or self-care (01) | DRG 872 ==
LOC: ER 09:53 → ERHOLD 15:52 → 2ND 11-25 14:03 → OBSVTOIN 11-25 19:34
PROVIDERS: ADMIT Internal Medicine Nephrology; ATTEND Internal Medicine Nephrology
DX: A41.9 Sepsis, unspecified organism (principal); N30.00 Acute cystitis without hematuria; N17.9 Acute kidney failure, unspecified; Z20.822 Contact with and (suspected) exposure to COVID-19
CPT/HCPCS: 0240U; 36415; 70450; 71045; 74177; 76857; 80048; 80053; 80061; 81003; 81015; 82947; 83605; 83735; 84100; 84484; 85025; 85610; 85730; 87040; 87086; 87088; 93005; 96374; 96375; 99284; G0378; J1650; J2405; J3010; J7030; Q9967